=== PATIENT | female | born 1965 | race Caucasian/White ===

== ENCOUNTER 2016-11-21 07:13 | Day surgery (SDC) | payer OTHER ==
[2016-11-21] VITALS (448 sets, daily range): BP systolic 110–187; BP diastolic 53–101; PULSE 50–64; TEMP 97.8–98.8; O2SAT 91–100
[~2016-11-21] VITALS: Ht 160 cm; Wt 72.7 kg
[2016-11-21 08:10] LABS: HEMATOCRIT 41.4 % (37.0-47.0); HEMOGLOBIN 14.8 g/dl (12.5-16.0); MEAN CELL VOLUME 98 fl (80.0-100.0); MEAN CORPUSCULAR HEMOGLOBIN 35 pg (27.0-31.0); MEAN CORPUSCULAR HGB CONC 36 g/dl (33.0-37.0); MEAN PLATELET VOLUME 9.8 fl (7.4-10.4); PLATELET COUNT 224 K/mm3 (130-400); RED BLOOD COUNT 4.23 M/mm3 (4.10-5.30); REDCELL DISTRIBUTION WIDTH-CV 12.8 % (11.5-14.5); WHITE BLOOD COUNT 10.2 K/mm3 (4.8-10.8)
[2016-11-21] MEDS ORDERED: NITROSTAT0.4 MG/TAB SL (08:11)
[2016-11-21] MEDS ORDERED: TOPROL XL 25MG25 MG PO (08:12)
[2016-11-21] MEDS ORDERED: MOTRIN 200200 MG/TAB PO (08:13)
[2016-11-21] MEDS ORDERED: TUMS500 MG (08:13)
[2016-11-21] MEDS ORDERED: OSTEO-BI-FLEX 21 TAB PO (08:14)
[2016-11-21] MEDS ORDERED: PROBIOTIC FORMU1 CAP PO (08:14)
[2016-11-21] MEDS ORDERED: PRINZIDE 25 MG-1 TAB PO (08:16)
[2016-11-21 08:21] LABS: CALCIUM 9.2 mg/dL (8.4-10.2); CREATININE, serum 0.51 mg/dL (0.52-1.25); POTASSIUM 3.6 mmol/L (3.4-5.0); PROTHROMBIN TIME 10.8 SECONDS (9.7-12.8)
[2016-11-21] MEDS ORDERED: ASPIRIN E.C. 8181 MG PO (08:38)
[2016-11-22] VITALS (454 sets, daily range): BP systolic 114–138; BP diastolic 58–77; PULSE 48–50; TEMP 97.8–98.3; O2SAT 89–100
[2016-11-22 06:14] LABS: BASO # 0.1 (0.0-0.2); BASO % 0.6 % (0.0-2.0); EOS # 0.1 (0.0-0.7); EOS % 1.3 % (0-4.0); GRAN # 6.3 (1.4-6.5); GRAN % 65.7 % (42.2-75.2); HEMATOCRIT 42.3 % (37.0-47.0); HEMOGLOBIN 14.5 g/dl (12.5-16.0); LYMPH # 2.6 (1.2-3.4); LYMPH % 26.8 % (20.0-51.0); MEAN CELL VOLUME 101 fl (80.0-100.0); MEAN CORPUSCULAR HEMOGLOBIN 35 pg (27.0-31.0); MEAN CORPUSCULAR HGB CONC 34 g/dl (33.0-37.0); MONO # 0.5 (0.1-0.6); MONO % 5.2 % (1.7-9.3); PLATELET COUNT 222 K/mm3 (130-400); REDCELL DISTRIBUTION WIDTH-CV 13.2 % (11.5-14.5); WHITE BLOOD COUNT 9.6 K/mm3 (4.8-10.8)
[2016-11-22 06:26] LABS: CALCIUM 9.2 mg/dL (8.4-10.2); CREATININE, serum 0.54 mg/dL (0.52-1.25); POTASSIUM 3.6 mmol/L (3.4-5.0)
[2016-11-22] MEDS ORDERED: TOPROL XL 50MG50 MG PO (09:18)
[2016-11-22] MEDS ORDERED: BRILINTA90 MG PO (09:18)
[2016-11-22] MEDS ORDERED: LIPITOR 40MG TA40 MG PO (09:19)
[2016-11-23] MEDS ORDERED: ATIVAN 1MG T1 MG/TAB PO (16:41)
== END 2016-11-22 10:20 | disposition home or self-care (01) ==
LOC: EUO 07:13 → COL.CAR 07:45 → ICU 12:15 → EUO 11-22 10:20
PROVIDERS: Internal Medicine Cardiovascular Disease
DX: I25.10 Atherosclerotic heart disease of native coronary artery without angina pectoris (principal); I73.9 Peripheral vascular disease, unspecified; F17.210 Nicotine dependence, cigarettes, uncomplicated; Z80.9 Family history of malignant neoplasm, unspecified; I10 Essential (primary) hypertension; M54.2 Cervicalgia; F41.9 Anxiety disorder, unspecified; R42 Dizziness and giddiness; E61.1 Iron deficiency
CPT/HCPCS: OP; C1760; C1769; C1874; C1887; C1894; C9600; J0583; J2060; J2250; J3010; Q9967

== ENCOUNTER 2016-11-23 14:52 | Emergency (ER) | payer OTHER ==
[~2016-11-23] VITALS: Ht 160 cm; Wt 72.3 kg
[~2016-11-23 14:52] MED LIST: ASPIRIN E.C. 8181 MG PO; BRILINTA90 MG PO; LIPITOR 40MG TA40 MG PO; MOTRIN 200200 MG/TAB PO; NITROSTAT0.4 MG/TAB SL; OSTEO-BI-FLEX 21 TAB PO; PRINZIDE 25 MG-1 TAB PO; PROBIOTIC FORMU1 CAP PO; TOPROL XL 25MG25 MG PO; TOPROL XL 50MG50 MG PO; TUMS500 MG
[2016-11-23 15:00] VITALS: TEMP 97.5
[2016-11-23 16:07] LABS: BASO # 0.1 (0.0-0.2); BASO % 0.5 % (0.0-2.0); EOS # 0.2 (0.0-0.7); EOS % 1.3 % (0-4.0); GRAN # 8.9 (1.4-6.5); GRAN % 68.4 % (42.2-75.2); HEMATOCRIT 43.2 % (37.0-47.0); HEMOGLOBIN 15.1 g/dl (12.5-16.0); LYMPH # 3.1 (1.2-3.4); MEAN CELL VOLUME 98 fl (80.0-100.0); MEAN CORPUSCULAR HEMOGLOBIN 34 pg (27.0-31.0); MEAN CORPUSCULAR HGB CONC 35 g/dl (33.0-37.0); MEAN PLATELET VOLUME 9.9 fl (7.4-10.4); MONO # 0.7 (0.1-0.6); MONO % 5.4 % (1.7-9.3); PLATELET COUNT 259 K/mm3 (130-400); RED BLOOD COUNT 4.39 M/mm3 (4.10-5.30); REDCELL DISTRIBUTION WIDTH-CV 12.9 % (11.5-14.5)
[2016-11-23 16:10] LABS: PROTHROMBIN TIME 10.6 SECONDS (9.7-12.8)
[2016-11-23 16:17] LABS: ADJUSTED CALCIUM 9.3 mg/dL (8.4-10.2); ALBUMIN 4.9 gm/dL (3.5-5.0); BILIRUBIN,TOTAL 0.7 mg/dL (0.0-1.0); CREATININE, serum 0.6 mg/dL (0.52-1.25); POTASSIUM 3.8 mmol/L (3.4-5.0)
[2016-11-23] MEDS ORDERED: ATIVAN 1MG T1 MG/TAB PO (16:41)
[2016-11-23 17:11] VITALS: BP 125/76; PULSE 52
== END 2016-11-23 17:13 | disposition home or self-care (01) ==
LOC: COL.ER 14:52
PROVIDERS: Emergency Medicine
DX: F41.9 Anxiety disorder, unspecified (principal); I25.10 Atherosclerotic heart disease of native coronary artery without angina pectoris; I10 Essential (primary) hypertension; E78.5 Hyperlipidemia, unspecified; F17.210 Nicotine dependence, cigarettes, uncomplicated; Z95.5 Presence of coronary angioplasty implant and graft; Z79.82 Long term (current) use of aspirin

== ENCOUNTER 2016-12-24 12:07 | Emergency (ER) | payer OTHER ==
[~2016-12-24] VITALS: Ht 162.6 cm; Wt 71.4 kg
[~2016-12-24 12:07] MED LIST changes: +ATIVAN 1MG T1 MG/TAB PO
[2016-12-24 12:09] VITALS: BP 135/68; PULSE 56; TEMP 97.5
[2016-12-24 12:56] LABS: BASO # 0.1 (0.0-0.2); BASO % 0.6 % (0.0-2.0); EOS # 0.1 (0.0-0.7); EOS % 0.8 % (0-4.0); GRAN % 74.2 % (42.2-75.2); HEMATOCRIT 39.1 % (37.0-47.0); HEMOGLOBIN 14.1 g/dl (12.5-16.0); LYMPH # 2.3 (1.2-3.4); LYMPH % 19.1 % (20.0-51.0); MEAN CELL VOLUME 94 fl (80.0-100.0); MEAN CORPUSCULAR HEMOGLOBIN 34 pg (27.0-31.0); MEAN CORPUSCULAR HGB CONC 36 g/dl (33.0-37.0); MEAN PLATELET VOLUME 9.7 fl (7.4-10.4); MONO # 0.6 (0.1-0.6); MONO % 4.9 % (1.7-9.3); PLATELET COUNT 256 K/mm3 (130-400); RED BLOOD COUNT 4.14 M/mm3 (4.10-5.30); REDCELL DISTRIBUTION WIDTH-CV 12.6 % (11.5-14.5); WHITE BLOOD COUNT 12.1 K/mm3 (4.8-10.8)
[2016-12-24 13:11] LABS: ALANINE AMINOTRANSFERASE 31 U/L (9-52); ALBUMIN 4.3 gm/dL (3.5-5.0); ALKALINE PHOSPHATASE 126 U/L (50-136); ANION GAP 10 mmol/L (7-16); BILIRUBIN,TOTAL 0.8 mg/dL (0.0-1.0); BLOOD UREA NITROGEN 9 mg/dL (7-17); CALCIUM 9.2 mg/dL (8.4-10.2); CARBON DIOXIDE 22 mmol/L (22-30); CHLORIDE 99 mmol/L (98-107); CREATININE, serum 0.51 mg/dL (0.52-1.25); GLUCOSE 105 mg/dL (74-106); LIPASE 139 U/L (23-300); POTASSIUM 3.7 mmol/L (3.4-5.0); SODIUM 131 mmol/L (137-145); TOTAL PROTEIN 7.4 gm/dL (6.4-8.2)
[2016-12-24 13:13] LABS: C-REACTIVE PROTEIN < 0.5 mg/dL (0.0-0.9)
[2016-12-24 14:20] LABS: PH 7 (5-8); URINE APPEARANCE Hazy; URINE BACTERIA Rare /hpf; URINE BILIRUBIN Negative (NEGATIVE); URINE BLOOD Negative (NEGATIVE); URINE COLOR Yellow; URINE GLUCOSE Negative (NEGATIVE); URINE KETONE Negative (NEGATIVE); URINE UROBILINOGEN Negative (NEGATIVE); URINE WBC None Seen /hpf
[2016-12-24] MEDS ORDERED: NORCO 325 MG-51 TAB PO (14:59)
== END 2016-12-24 15:42 | disposition home or self-care (01) ==
LOC: COL.ER 12:07
PROVIDERS: Family Medicine
DX: N20.1 Calculus of ureter (principal); D35.00 Benign neoplasm of unspecified adrenal gland; I25.10 Atherosclerotic heart disease of native coronary artery without angina pectoris; F17.210 Nicotine dependence, cigarettes, uncomplicated; Z95.5 Presence of coronary angioplasty implant and graft; Z90.49 Acquired absence of other specified parts of digestive tract; Z90.89 Acquired absence of other organs
CPT/HCPCS: J1170; J2405; J7030; Q9967

== ENCOUNTER → 2017-03-22 | Outpatient (CLI) | payer OTHER ==
[2004-04-09 03:21] VITALS: TEMP 99.8
[~2017-03-22] MED LIST changes: +NORCO 325 MG-51 TAB PO
== END ==
LOC: MC.RAD 13:51
DX: D24.1 Benign neoplasm of right breast (principal); Z98.82 Breast implant status

== ENCOUNTER → 2017-08-31 | Outpatient (CLI) | payer OTHER ==
[2004-04-09 03:21] VITALS: TEMP 99.8
== END ==
LOC: COL.RAD 08-03 13:00
DX: E27.8 Other specified disorders of adrenal gland (principal); I70.90 Unspecified atherosclerosis

== ENCOUNTER 2018-04-25 13:08 | Emergency (ER) | payer OTHER ==
[~2018-04-25] VITALS: Ht 160 cm; Wt 75.5 kg
[2018-04-25 13:10] VITALS: TEMP 97.4
[2018-04-25] MEDS ORDERED: XANAX .25M0.25 MG/TA PO (13:38)
[2018-04-25 13:46] LABS: BASO # 0.1 (0.0-0.2); BASO % 0.8 % (0.0-2.0); EOS # 0.1 (0.0-0.7); EOS % 0.9 % (0-4.0); GRAN # 6.9 (1.4-6.5); GRAN % 66.9 % (42.2-75.2); HEMATOCRIT 42.2 % (37.0-47.0); HEMOGLOBIN 14.6 g/dl (12.5-16.0); LYMPH # 2.6 (1.2-3.4); MEAN CELL VOLUME 98 fl (80.0-100.0); MEAN CORPUSCULAR HEMOGLOBIN 34 pg (27.0-31.0); MEAN CORPUSCULAR HGB CONC 35 g/dl (33.0-37.0); MEAN PLATELET VOLUME 9.6 fl (7.4-10.4); MONO # 0.6 (0.1-0.6); MONO % 5.9 % (1.7-9.3); PLATELET COUNT 263 K/mm3 (130-400); RED BLOOD COUNT 4.33 M/mm3 (4.10-5.30); REDCELL DISTRIBUTION WIDTH-CV 13.2 % (11.5-14.5)
[2018-04-25 13:59] LABS: ALANINE AMINOTRANSFERASE 18 U/L (9-52); ALBUMIN 4.4 gm/dL (3.5-5.0); ALKALINE PHOSPHATASE 94 U/L (50-136); ANION GAP 6 mmol/L (7-16); AST,SGOT 22 U/L (15-37); BILIRUBIN,TOTAL 0.5 mg/dL (0.0-1.0); BLOOD UREA NITROGEN 14 mg/dL (7-17); CALCIUM 9.6 mg/dL (8.4-10.2); CARBON DIOXIDE 25 mmol/L (22-30); CHLORIDE 105 mmol/L (98-107); CREATININE, serum 0.67 mg/dL (0.52-1.25); GLUCOSE 97 mg/dL (74-106); POTASSIUM 4.1 mmol/L (3.4-5.0); SODIUM 136 mmol/L (137-145); TOTAL PROTEIN 7.6 gm/dL (6.4-8.2)
[2018-04-25 14:03] LABS: PROTHROMBIN TIME 11.2 SECONDS (9.7-12.8)
[2018-04-25 14:06] LABS: PARTIAL THROMBOPLASTIN TIME 32.8 SECONDS (26.0-37.0)
[2018-04-25 14:14] LABS: TROPONIN-I < 0.012 ng/mL (0.000-0.034)
[2018-04-25 16:34] VITALS: BP 150/86; PULSE 54
== END 2018-04-25 16:59 | disposition home or self-care (01) ==
LOC: COL.ER 13:08
PROVIDERS: Family Medicine
DX: R07.89 Other chest pain (principal); E78.5 Hyperlipidemia, unspecified; F17.210 Nicotine dependence, cigarettes, uncomplicated; I25.10 Atherosclerotic heart disease of native coronary artery without angina pectoris; Z79.82 Long term (current) use of aspirin; Z95.5 Presence of coronary angioplasty implant and graft

== ENCOUNTER → 2019-07-10 | Outpatient (CLI) | payer OTHER ==
[2004-04-09 03:21] VITALS: TEMP 99.8
[~2019-07-10] MED LIST changes: +XANAX .25M0.25 MG/TA PO
== END ==
LOC: COL.RAD 11:30
DX: E05.80 Other thyrotoxicosis without thyrotoxic crisis or storm (principal)
CPT/HCPCS: A9516

== ENCOUNTER → 2019-08-26 | Outpatient (CLI) | payer OTHER ==
[2004-04-09 03:21] VITALS: TEMP 99.8
[~2019-08-26] MED LIST changes: +LEXAPRO 10MG10 MG PO; +PRILOSEC 20MG20 MG PO; +TAPAZOLE10 MG PO
[2019-08-26 23:33] LABS: T3 TOTAL 110 ng/dL (87-178)
== END ==
LOC: COL.LAB 11:26
PROVIDERS: Registered Nurse
DX: E55.9 Vitamin D deficiency, unspecified (principal); E05.00 Thyrotoxicosis with diffuse goiter without thyrotoxic crisis or storm

== ENCOUNTER → 2019-09-02 | Outpatient (CLI) | payer OTHER ==
--- NOTE | 2019-08-28 10:30 | NUR ---
LMON WITH DATE, TIME, INSTRUCTIONS AND CALL BACK NUMBER
[~2019-09-02] VITALS: Ht 160 cm; Wt 77.4 kg
--- NOTE | 2019-09-02 12:10 | NUR ---
PROCEDURE CANCELLED BY DR WILL
[2019-09-02 12:14] VITALS: BP 149/87; PULSE 75
== END ==
LOC: COL.RAD 11:56
DX: E04.2 Nontoxic multinodular goiter (principal)

== ENCOUNTER → 2020-08-13 | Outpatient (CLI) | payer OTHER ==
[2004-04-09 03:21] VITALS: TEMP 99.8
== END ==
LOC: ZCOL.LAB 10:49
DX: Z01.812 Encounter for preprocedural laboratory examination (principal); Z20.822 Contact with and (suspected) exposure to COVID-19

== ENCOUNTER → 2022-02-15 | Outpatient (CLI) | payer OTHER ==
[2004-04-09 03:21] VITALS: TEMP 99.8
== END ==
LOC: COL.RAD 02-06 07:30
DX: I77.810 Thoracic aortic ectasia (principal); R91.8 Other nonspecific abnormal finding of lung field
CPT/HCPCS: Q9967

== ENCOUNTER → 2022-08-11 | Outpatient (CLI) | payer OTHER ==
[2004-04-09 03:21] VITALS: TEMP 99.8
== END ==
LOC: COL.RAD 11:08
DX: I71.21 Aneurysm of the ascending aorta, without rupture (principal)
CPT/HCPCS: Q9967